=== PATIENT | female | born 1965 | race Caucasian/White ===

== ENCOUNTER 2018-04-17 00:03 | Emergency (ER) | payer MEDICARE, MEDICAID ==
[~2018-04-17] VITALS: Ht 154.9 cm; Wt 72.7 kg
[~2018-04-17 00:03] MED LIST: ALBU8.5H4 IH; CLON-528 PO; DOCU-28 PO; DULO-31 PO; LEVO75TA7 PO; NICO-687 TD; TRAZ-218 PO
[2018-04-17 00:16] VITALS: BP 129/82
[2018-04-17] MEDS ORDERED: ibuprofen 200mg tablet PO ONE (01:25)
== END 2018-04-17 02:00 | disposition home or self-care (01) ==
LOC: ER 00:03
DX: M25.531 Pain in right wrist (principal); M25.511 Pain in right shoulder; J44.9 Chronic obstructive pulmonary disease, unspecified; E03.9 Hypothyroidism, unspecified; Z98.51 Tubal ligation status; Z98.890 Other specified postprocedural states; Z79.899 Other long term (current) drug therapy
CPT/HCPCS: 29125; 73030; 73080; 73110; 99284; A4565; A6449

== ENCOUNTER 2019-03-31 01:21 | Emergency (ER) | payer MEDICARE, MEDICAID ==
[~2019-03-31] VITALS: Ht 154.9 cm; Wt 69.2 kg
[~2019-03-31 01:21] MED LIST changes: -TRAZ-218 PO; +TRAZ-251 PO
[2019-03-31 01:26] VITALS: BP 176/70
[2019-03-31] MEDS ORDERED: HYDROcodone/acetaminophen 10/325mg tab PO STA (01:33)
[2019-03-31] MEDS ORDERED: ONDA4TAB6 PO (02:53)
[2019-03-31] MEDS ORDERED: HYDR-4353 PO (02:53)
== END 2019-03-31 03:24 | disposition home or self-care (01) ==
LOC: ER 01:21
DX: S92.511A Displaced fracture of proximal phalanx of right lesser toe(s), initial encounter for closed fracture (principal); R11.0 Nausea; J44.9 Chronic obstructive pulmonary disease, unspecified; E03.9 Hypothyroidism, unspecified; F31.9 Bipolar disorder, unspecified; F41.9 Anxiety disorder, unspecified; F20.9 Schizophrenia, unspecified; Z79.899 Other long term (current) drug therapy; Z98.51 Tubal ligation status; Z98.890 Other specified postprocedural states; W22.8XXA Striking against or struck by other objects, initial encounter; Y93.01 Activity, walking, marching and hiking; Y92.89 Other specified places as the place of occurrence of the external cause; Y99.8 Other external cause status
CPT/HCPCS: 73630; 99283

== ENCOUNTER → 2021-02-05 | Emergency (ER) | payer MEDICARE, MEDICAID ==
[~2021-02-05] VITALS: Ht 154.9 cm; Wt 75.0 kg
[~2021-02-05] MED LIST changes: +HYDR-3972 PO; +HYDROcodone/acetaminophen 10/325mg tab PO ONE; +ONDA4TAB6 PO; +ORPH100T2 PO; +orphenadrine citrate 60mg/2ml inj. IM ONE
[2021-02-05 14:53] VITALS: BP 144/106
== END | disposition home or self-care (01) ==
LOC: ER 14:29
DX: S16.1XXA Strain of muscle, fascia and tendon at neck level, initial encounter (principal); I10 Essential (primary) hypertension; J44.9 Chronic obstructive pulmonary disease, unspecified; E03.9 Hypothyroidism, unspecified; Z98.890 Other specified postprocedural states; Z98.51 Tubal ligation status; Z79.899 Other long term (current) drug therapy; V99.XXXA Unspecified transport accident, initial encounter; Y93.89 Activity, other specified; Y92.89 Other specified places as the place of occurrence of the external cause; Y99.8 Other external cause status
CPT/HCPCS: 72040; 96372; 99283; J2360

== ENCOUNTER 2021-04-22 18:12 | Emergency (ER) | payer MEDICARE, MEDICAID ==
[~2021-04-22] VITALS: Ht 154.9 cm; Wt 70.5 kg
[~2021-04-22 18:12] MED LIST changes: -HYDR-3972 PO; -HYDROcodone/acetaminophen 10/325mg tab PO ONE; -orphenadrine citrate 60mg/2ml inj. IM ONE
[2021-04-22] MEDS ORDERED: HYDROcodone/acetaminophen 5mg/325mg tablet PO ONE (20:40)
[2021-04-22] MEDS ORDERED: HYDR-3965 PO (22:22)
--- NOTE | 2021-04-22 22:25 | NUR ---
Patient ambulatory to and from bathroom with steady gait. saltine crackers provided as patient states she became a bit nauseous after pain medicine.
[2021-04-22 22:38] VITALS: BP 137/88
== END 2021-04-22 22:39 | disposition home or self-care (01) ==
LOC: ER 18:13
DX: M54.6 Pain in thoracic spine (principal); M54.5 Low back pain; M25.511 Pain in right shoulder; M25.551 Pain in right hip; J44.9 Chronic obstructive pulmonary disease, unspecified; E03.9 Hypothyroidism, unspecified; F41.9 Anxiety disorder, unspecified; F31.9 Bipolar disorder, unspecified; F20.9 Schizophrenia, unspecified; F17.200 Nicotine dependence, unspecified, uncomplicated; Z98.51 Tubal ligation status; Z98.890 Other specified postprocedural states; Z79.899 Other long term (current) drug therapy
CPT/HCPCS: 72128; 72131; 73522; 99284; 99285

== ENCOUNTER 2021-12-30 20:39 | Emergency (ER) | payer MEDICARE, MEDICAID ==
[~2021-12-30] VITALS: Ht 154.9 cm; Wt 72.2 kg
[~2021-12-30 20:39] MED LIST changes: -CLON-528 PO; -DOCU-28 PO; -DULO-31 PO; -LEVO75TA7 PO; -NICO-687 TD; -ONDA4TAB6 PO; -ORPH100T2 PO
[2021-12-30 21:17] LABS: BASOPHILS # (AUTO) 0.1 X10'3 (0-0.2); BASOPHILS % (AUTO) 1.1 % (0-1); EOSINOPHILS # (AUTO) 0.2 X10'3 (0-0.9); EOSINOPHILS % (AUTO) 1.5 % (0-6); HEMATOCRIT 41.2 % (35.0-45.0); LYMPHOCYTES # (AUTO) 3.3 X10'3 (1.1-4.8); LYMPHOCYTES % (AUTO) 30.7 % (21-51); MEAN CORPUSCULAR HEMOGLOBIN 29.1 PG (27.0-31.0); MEAN CORPUSCULAR VOLUME 85.6 FL (78-98); MEAN PLATELET VOLUME 8.7 FL (7.4-10.4); MONOCYTES # (AUTO) 0.7 X10'3 (0-0.9); MONOCYTES % (AUTO) 6.6 % (2-12); NEUTROPHILS # (AUTO) 6.4 X10'3 (1.8-7.7); NEUTROPHILS % (AUTO) 60.1 % (42-75); PLATELET COUNT 297 X10'3 (140-440); RED BLOOD COUNT 4.81 X10'6 (4.20-5.60); WHITE BLOOD COUNT 10.6 X10'3 (4.5-11.0)
[2021-12-30 21:21] LABS: ALANINE AMINOTRANSFERASE 17 U/L (12-78); ALBUMIN 3.9 G/DL (3.4-5.0); ALBUMIN/GLOBULIN RATIO 1.1 (1.1-1.5); ALKALINE PHOSPHATASE 88 IU/L (46-116); ANION GAP 13 (8-16); ASPARTATE AMINO TRANSFERASE 14 U/L (10-37); BILIRUBIN,TOTAL 0.2 MG/DL (0.1-1.0); BLOOD UREA NITROGEN 10 MG/DL (7-18); BUN/CREATININE RATIO 11.5 (6.6-38.0); CALCIUM 8.8 MG/DL (8.5-10.1); CHLORIDE 109 MMOL/L (99-107); CREATININE 0.87 MG/DL (0.40-0.90); GLUCOSE 109 MG/DL (70-104); POTASSIUM 3.6 MMOL/L (3.5-5.1); SODIUM 146 MMOL/L (135-145); TOTAL CARBON DIOXIDE 24.5 MMOL/L (24-32); TOTAL PROTEIN 7.5 G/DL (6.4-8.2); eGFR 68 ML/MIN
[2021-12-30] MEDS ORDERED: HYDROcodone/acetaminophen 5mg/325mg tablet PO ONE (22:30)
[2021-12-30] MEDS ORDERED: aspirin 81mg tab.chew PO ONE (22:30)
[2021-12-31] MEDS ORDERED: ketorolac trometh. 30mg/ml inj. IV ONE (00:25)
[2021-12-31 00:30] VITALS: BP 156/71
== END 2021-12-31 00:31 | disposition home or self-care (01) ==
LOC: ER 20:40
DX: R07.89 Other chest pain (principal); R94.31 Abnormal electrocardiogram [ECG] [EKG]; J44.9 Chronic obstructive pulmonary disease, unspecified; E06.9 Thyroiditis, unspecified; F31.9 Bipolar disorder, unspecified; F17.200 Nicotine dependence, unspecified, uncomplicated
CPT/HCPCS: 36415; 71045; 80053; 83880; 84484; 85025; 93005; 99285

== ENCOUNTER 2022-01-09 21:18 | Inpatient (IN) | payer MEDICARE, MEDICAID ==
[~2022-01-09] VITALS: Ht 152.4 cm; Wt 72.7 kg
[2022-01-09 22:06] LABS: BASOPHILS # (AUTO) 0.1 X10'3 (0-0.2); BASOPHILS % (AUTO) 0.7 % (0-1); EOSINOPHILS # (AUTO) 0.1 X10'3 (0-0.9); EOSINOPHILS % (AUTO) 1.7 % (0-6); HEMOGLOBIN 13.5 g/dl (12.0-16.0); LYMPHOCYTES # (AUTO) 3.1 X10'3 (1.1-4.8); MEAN CORPUSCULAR HEMOGLOBIN 28.3 PG (27.0-31.0); MEAN CORPUSCULAR HGB CONC 33.7 g/dL (33.0-36.5); MEAN CORPUSCULAR VOLUME 83.9 FL (78-98); MEAN PLATELET VOLUME 8.2 FL (7.4-10.4); MONOCYTES # (AUTO) 0.5 X10'3 (0-0.9); MONOCYTES % (AUTO) 6.6 % (2-12); NEUTROPHILS # (AUTO) 4.5 X10'3 (1.8-7.7); PLATELET COUNT 257 X10'3 (140-440); RED BLOOD COUNT 4.76 X10'6 (4.20-5.60); RED CELL DISTRIBUTION WIDTH 13.8 % (11.5-14.5); WHITE BLOOD COUNT 8.3 X10'3 (4.5-11.0)
[2022-01-09 22:22] LABS: CHLORIDE 108 MMOL/L (99-107); GLUCOSE 103 MG/DL (70-104); POTASSIUM 3.6 MMOL/L (3.5-5.1); SODIUM 141 MMOL/L (135-145); TOTAL CARBON DIOXIDE 25.7 MMOL/L (24-32)
[2022-01-09 22:23] LABS: ALANINE AMINOTRANSFERASE 9 U/L (12-78); ALBUMIN 3.7 G/DL (3.4-5.0); ALKALINE PHOSPHATASE 84 IU/L (46-116); ANION GAP 7 (8-16); ASPARTATE AMINO TRANSFERASE 9 U/L (10-37); BILIRUBIN,TOTAL 0.2 MG/DL (0.1-1.0); BLOOD UREA NITROGEN 13 MG/DL (7-18); BUN/CREATININE RATIO 15.7 (6.6-38.0); CALCIUM 8.4 MG/DL (8.5-10.1); CREATININE 0.83 MG/DL (0.40-0.90); TOTAL PROTEIN 7.3 G/DL (6.4-8.2); eGFR 71 ML/MIN
[2022-01-10] VITALS (15 sets, daily range): BP systolic 114–204; BP diastolic 67–133
[2022-01-10 01:25] LABS: D-DIMER < 0.19 MG/L FEU (0-0.50)
[2022-01-10] MEDS ORDERED: acetaminophen 325mg tablet PO PRN ×2 (01:45)
[2022-01-10] MEDS ORDERED: magnesium Cl slow-release 64mg tablet PO PRN (01:45)
[2022-01-10] MEDS ORDERED: potassium Cl 20 mEq SR tablet PO PRN ×2 (01:45)
[2022-01-10] MEDS ORDERED: morphine 2 MG/ML inj. syringe IV PRN ×2 (01:45)
[2022-01-10] MEDS ORDERED: potassium CL 10mEq/100ml bag 100 ML IV PRN (01:45)
[2022-01-10] MEDS ORDERED: mag hydrox/Alum hydrox/simeth 30ml oral suspension PO PRN (01:45)
[2022-01-10] MEDS ORDERED: ondansetron/PF 4mg/2ml inj IV PRN (01:45)
[2022-01-10] MEDS ORDERED: PERFLUTREN PROTEIN-A MICROSPHR (Optison) 0.22 MG/ML 3ML VIAL IV PRN (01:45)
[2022-01-10] MEDS ORDERED: magnesium 2GM in 50ml NS 50 ML IV PRN (01:45)
[2022-01-10] MEDS ORDERED: magnesium 4gm in 100ml NS 100 ML IV PRN (01:45)
[2022-01-10] MEDS ORDERED: magnesium hydroxide 30ml (MOM) UD suspension PO PRN (01:45)
[2022-01-10] MEDS ORDERED: HYDROcodone/acetaminophen 10/325mg tab PO PRN (01:45)
[2022-01-10] MEDS ORDERED: HYDROcodone/acetaminophen 5mg/325mg tablet PO PRN (01:45)
[2022-01-10] MEDS ORDERED: metoprolol tartrate 1mg/ml inj IV PRN (02:30)
[2022-01-10] MEDS ORDERED: regadenoson 0.4mg/5ml syringe IV PRN (02:30)
[2022-01-10] MEDS ORDERED: aminophylline 250mg/10ml inj. IV PRN (02:30)
[2022-01-10] MEDS ORDERED: nitroGLYCERIN 0.4mg SUBLingual tab SL PRN (02:30)
[2022-01-10] MEDS: normal saline 1000ml 1,000 ML IV SCH ×3 (02:48→21:45)
--- NOTE | 2022-01-10 05:53 | NUR ---
BP has high BP 180/80. Marce CROWDER paged. No BP medications on NOV. Marce provided verbal order of Lisinopril 10mg PO 1 dose STAT.
[2022-01-10] MEDS ORDERED: lisinopril 10 MG tablet PO SCH (05:55)
[2022-01-10] MEDS ORDERED: lisinopril 10 MG tablet PO ONE (05:55)
[2022-01-10] MEDS: K and/or MAG REPLACEMENT MC SCH ×2 (08:00→20:00)
--- NOTE | 2022-01-10 08:00 | NUR ---
pt to cameron with staff
[2022-01-10] MEDS ORDERED: METO-384 PO (08:08)
[2022-01-10] MEDS ORDERED: ESCI5TAB17 PO (08:08)
[2022-01-10] MEDS ORDERED: TRAZ-251 PO (08:08)
[2022-01-10] MEDS ORDERED: ASPI81TA52 PO (08:09)
--- NOTE | 2022-01-10 08:59 | NUR ---
report called to ander ASTORGA coming up from [facility]
[2022-01-10] MEDS ORDERED: aminophylline 500mg/20ml vial ONE (09:59)
[2022-01-10] MEDS ORDERED: aminophylline 500mg/20ml vial IV PRN (10:04)
[2022-01-10] MEDS: docusate sod 100mg capsule PO SCH ×2 (12:12→20:00)
[2022-01-10] MEDS: heparin, porcine 5000 units/ml vial SQ SCH ×2 (12:12→20:00)
[2022-01-10] MEDS ORDERED: amLODIPine 5mg tablet PO ONE (12:45)
[2022-01-10] MEDS ORDERED: traZODone 50mg tablet PO PRN (13:10)
[2022-01-10] MEDS: nicotine 21mg patch - 24 hr TD SCH (17:04)
--- NOTE | 2022-01-10 18:47 | NUR ---
Patient in room PCU 3017. I have received report from betzaida and had the opportunity to ask questions and assume patient care.
[2022-01-10] MEDS ORDERED: temazepam 15mg capsule PO PRN (21:00)
[2022-01-10] MEDS: LORazepam 2 mg/ml vial IV PRN (21:06)
[2022-01-11 02:00] VITALS: BP 147/68
--- NOTE | 2022-01-11 02:17 | NUR ---
Patient was wanting to leave AMA because she wanted to smoke and anxiety. Patient has a nicotine patch on. I called Dr. Zheng to notify and she gave an order for Ativan. I was able to give the patient Ativan but patient refused other medications at this time. Patient is now resting comfortably.
[2022-01-11] MEDS: LORazepam 2 mg/ml vial IV PRN (05:31)
[2022-01-11] MEDS: normal saline 1000ml 1,000 ML IV SCH (05:40)
[2022-01-11 06:00] VITALS: BP 181/94
--- NOTE | 2022-01-11 06:37 | NUR ---
Problems reprioritized. Patient report given, questions answered & plan of care reviewed with holly.
[2022-01-11] MEDS: docusate sod 100mg capsule PO SCH (07:58)
[2022-01-11] MEDS: nicotine 21mg patch - 24 hr TD SCH (07:59)
[2022-01-11] MEDS ORDERED: amLODIPine 5mg tablet PO SCH (08:00)
[2022-01-11] MEDS: K and/or MAG REPLACEMENT MC SCH (08:00)
[2022-01-11] MEDS ORDERED: ESCITALOPRAM OXALATE 5 MG TABLET PO SCH (08:00)
[2022-01-11] MEDS: heparin, porcine 5000 units/ml vial SQ SCH (08:00)
[2022-01-11] MEDS ORDERED: metoprolol succinate 25mg (24-HOUR) SR. Tablet PO SCH (08:00)
[2022-01-11] MEDS ORDERED: aspirin 81mg, enteric-coated 1 TAB TABLET.DR PO SCH (08:00)
[2022-01-11 08:27] LABS: BASOPHILS % (AUTO) 0.7 % (0-1); EOSINOPHILS # (AUTO) 0.1 X10'3 (0-0.9); EOSINOPHILS % (AUTO) 1.6 % (0-6); HEMATOCRIT 39.7 % (35.0-45.0); HEMOGLOBIN 13.6 g/dl (12.0-16.0); LYMPHOCYTES % (AUTO) 35.7 % (21-51); MEAN CORPUSCULAR HEMOGLOBIN 28.8 PG (27.0-31.0); MEAN CORPUSCULAR HGB CONC 34.2 g/dL (33.0-36.5); MEAN CORPUSCULAR VOLUME 84.3 FL (78-98); MEAN PLATELET VOLUME 8.8 FL (7.4-10.4); MONOCYTES # (AUTO) 0.3 X10'3 (0-0.9); MONOCYTES % (AUTO) 5.4 % (2-12); NEUTROPHILS # (AUTO) 3.1 X10'3 (1.8-7.7); NEUTROPHILS % (AUTO) 56.6 % (42-75); PLATELET COUNT 251 X10'3 (140-440); RED BLOOD COUNT 4.71 X10'6 (4.20-5.60); RED CELL DISTRIBUTION WIDTH 13.3 % (11.5-14.5); WHITE BLOOD COUNT 5.5 X10'3 (4.5-11.0)
[2022-01-11 08:39] LABS: ALANINE AMINOTRANSFERASE 11 U/L (12-78); ALBUMIN 3.6 G/DL (3.4-5.0); ALKALINE PHOSPHATASE 80 IU/L (46-116); ANION GAP 11 (8-16); ASPARTATE AMINO TRANSFERASE 9 U/L (10-37); BILIRUBIN,TOTAL 0.4 MG/DL (0.1-1.0); BLOOD UREA NITROGEN 11 MG/DL (7-18); BUN/CREATININE RATIO 14.1 (6.6-38.0); CHLORIDE 108 MMOL/L (99-107); CREATININE 0.78 MG/DL (0.40-0.90); GLUCOSE 101 MG/DL (70-104); POTASSIUM 3.7 MMOL/L (3.5-5.1); SODIUM 143 MMOL/L (135-145); TOTAL CARBON DIOXIDE 24.4 MMOL/L (24-32); TOTAL PROTEIN 7.2 G/DL (6.4-8.2); eGFR 77 ML/MIN
[2022-01-11 11:00] VITALS: BP 175/81
[2022-01-11] MEDS ORDERED: LISI5TAB22 PO (13:53)
[2022-01-11] MEDS ORDERED: NICO-687 TD (13:53)
[2022-01-11] MEDS ORDERED: NOR5T PO (13:53)
--- NOTE | 2022-01-11 14:15 | NUR ---
discharge instructions discussed with patients. All questions answered. Pt states she understands all instructions. Removed PIV and walked pt to elevator. sister is picking pt up.
== END 2022-01-11 15:15 | disposition home or self-care (01) | DRG 305 ==
LOC: ER 21:19 → ED HOLD 01-10 01:48 → PCU 3S 01-10 11:19
PROVIDERS: ADMIT Internal Medicine; ATTEND Family Medicine
PROC: 4A02XM4 Measurement of Cardiac Total Activity, External Approach (ICD-10-PCS; principal; 2022-01-10)
PROC: 3E033HZ Introduction of Radioactive Substance into Peripheral Vein, Percutaneous Approach (ICD-10-PCS; 2022-01-10)
DX: I16.0 Hypertensive urgency (principal); E03.9 Hypothyroidism, unspecified; F17.210 Nicotine dependence, cigarettes, uncomplicated; I10 Essential (primary) hypertension; F20.9 Schizophrenia, unspecified; F31.9 Bipolar disorder, unspecified; F41.9 Anxiety disorder, unspecified; J44.9 Chronic obstructive pulmonary disease, unspecified; Z88.8 Allergy status to other drugs, medicaments and biological substances; Z98.51 Tubal ligation status; Z71.6 Tobacco abuse counseling
CPT/HCPCS: 36415; 71045; 78452; 80053; 83605; 83880; 84484; 85025; 85379; 87040; 87077; 87081; 93005; 93017; 93306; 97116; 97161; 99285; A9500; G0378; J0280; J1644; J2060; J2785; J7030

== ENCOUNTER 2022-02-06 13:54 | Emergency (ER) | payer MEDICARE, MEDICAID ==
[~2022-02-06] VITALS: Ht 152.4 cm; Wt 68.2 kg
[~2022-02-06 13:54] MED LIST changes: -ALBU8.5H4 IH; +ASPI81TA52 PO; +ESCI5TAB17 PO; +LISI5TAB22 PO; +METO-384 PO; +NICO-687 TD; +NOR5T PO
[2022-02-06 15:07] LABS: BASOPHILS # (AUTO) 0.1 X10'3 (0-0.2); BASOPHILS % (AUTO) 0.9 % (0-1); EOSINOPHILS # (AUTO) 0.2 X10'3 (0-0.9); EOSINOPHILS % (AUTO) 1.9 % (0-6); HEMATOCRIT 40.7 % (35.0-45.0); HEMOGLOBIN 13.7 g/dl (12.0-16.0); LYMPHOCYTES # (AUTO) 2.3 X10'3 (1.1-4.8); LYMPHOCYTES % (AUTO) 23.5 % (21-51); MEAN CORPUSCULAR HEMOGLOBIN 28.4 PG (27.0-31.0); MEAN CORPUSCULAR HGB CONC 33.6 g/dL (33.0-36.5); MEAN CORPUSCULAR VOLUME 84.4 FL (78-98); MEAN PLATELET VOLUME 8.7 FL (7.4-10.4); MONOCYTES # (AUTO) 0.6 X10'3 (0-0.9); MONOCYTES % (AUTO) 5.9 % (2-12); NEUTROPHILS # (AUTO) 6.7 X10'3 (1.8-7.7); NEUTROPHILS % (AUTO) 67.8 % (42-75); PLATELET COUNT 260 X10'3 (140-440); RED BLOOD COUNT 4.82 X10'6 (4.20-5.60); WHITE BLOOD COUNT 9.9 X10'3 (4.5-11.0)
[2022-02-06 15:24] LABS: ALANINE AMINOTRANSFERASE 9 U/L (12-78); ALBUMIN 3.9 G/DL (3.4-5.0); ALBUMIN/GLOBULIN RATIO 1.1 (1.1-1.5); ALKALINE PHOSPHATASE 92 IU/L (46-116); ANION GAP 7 (8-16); ASPARTATE AMINO TRANSFERASE 10 U/L (10-37); BILIRUBIN,TOTAL 0.3 MG/DL (0.1-1.0); BLOOD UREA NITROGEN 11 MG/DL (7-18); BUN/CREATININE RATIO 12.5 (6.6-38.0); CHLORIDE 108 MMOL/L (99-107); CREATININE 0.88 MG/DL (0.40-0.90); GLUCOSE 98 MG/DL (70-104); POTASSIUM 3.8 MMOL/L (3.5-5.1); SODIUM 141 MMOL/L (135-145); TOTAL PROTEIN 7.6 G/DL (6.4-8.2); eGFR 67 ML/MIN
[2022-02-06] MEDS ORDERED: aspirin 81mg tab.chew PO ONE (17:10)
[2022-02-06] MEDS ORDERED: enoxaparin 100mg/ml syringe SUBCUT ONE (17:50)
[2022-02-06 18:26] VITALS: BP 124/79
== END 2022-02-06 18:28 | disposition home or self-care (01) ==
LOC: ER 13:54
DX: R07.89 Other chest pain (principal); I10 Essential (primary) hypertension; J44.9 Chronic obstructive pulmonary disease, unspecified; E03.9 Hypothyroidism, unspecified; F41.9 Anxiety disorder, unspecified; F31.9 Bipolar disorder, unspecified; F20.9 Schizophrenia, unspecified; F17.200 Nicotine dependence, unspecified, uncomplicated; Z98.51 Tubal ligation status; Z88.8 Allergy status to other drugs, medicaments and biological substances; Z79.899 Other long term (current) drug therapy
CPT/HCPCS: 36415; 71045; 80053; 83880; 84484; 85025; 93005; 99285

== ENCOUNTER 2022-05-07 11:01 | Emergency (ER) | payer MEDICARE, MEDICAID ==
[~2022-05-07] VITALS: Ht 154.9 cm; Wt 70.5 kg
--- NOTE | 2022-05-07 12:10 | NUR ---
Pt is very hard of hearing. C/O Lower back pain with incont. of both urine and stool.
--- NOTE | 2022-05-07 12:35 | NUR ---
MRI questionare completed and faxed.
--- NOTE | 2022-05-07 14:08 | NUR ---
Pt is in MRI.
[2022-05-07 15:04] VITALS: BP 129/49
[2022-05-07] MEDS ORDERED: IBUP-1986 PO (17:48)
[2022-05-07] MEDS ORDERED: ORPH100T2 PO (17:48)
[2022-05-07] MEDS ORDERED: HYDR-3972 PO (17:48)
[2022-05-07] MEDS ORDERED: HYDROcodone/acetaminophen 10/325mg tab PO ONE (17:50)
[2022-05-07] MEDS ORDERED: orphenadrine citrate 60mg/2ml inj. IM ONE (17:50)
--- NOTE | 2022-05-07 18:09 | NUR ---
Pt given and understands d/c instructions. Ambulatory with a slow steady gait.
== END 2022-05-07 18:10 | disposition home or self-care (01) ==
LOC: ER 11:02
DX: M54.50 Low back pain, unspecified (principal); I10 Essential (primary) hypertension; J44.9 Chronic obstructive pulmonary disease, unspecified; E03.9 Hypothyroidism, unspecified; F31.9 Bipolar disorder, unspecified; Z88.8 Allergy status to other drugs, medicaments and biological substances; Z98.51 Tubal ligation status
CPT/HCPCS: 72148; 96372; 99284; J2360

== ENCOUNTER 2023-10-29 21:11 | Emergency (ER) | payer MEDICARE, MEDICAID ==
[~2023-10-29] VITALS: Ht 154.9 cm; Wt 70.1 kg
[~2023-10-29 21:11] MED LIST changes: +IBUP-1986 PO; +ORPH100T4 PO
[2023-10-29 21:28] VITALS: BP 212/80; PULSE 87; RESP 18; TEMP 98.2; O2SAT 100
[2023-10-29] MEDS ORDERED: HYDR-3965 PO (22:30)
== END 2023-10-29 22:50 | disposition home or self-care (01) ==
LOC: ER 21:12
DX: S80.02XA Contusion of left knee, initial encounter (principal); S70.02XA Contusion of left hip, initial encounter; I10 Essential (primary) hypertension; E03.9 Hypothyroidism, unspecified; F41.9 Anxiety disorder, unspecified; F20.9 Schizophrenia, unspecified; Z98.890 Other specified postprocedural states; V29.888A Rider (driver) (passenger) of other motorcycle injured in other specified transport accidents, initial encounter; Y93.89 Activity, other specified; Y92.89 Other specified places as the place of occurrence of the external cause; Y99.8 Other external cause status
CPT/HCPCS: 73502; 73564; 99284

== ENCOUNTER 2025-03-06 04:24 | Emergency (ER) | payer MEDICAID, MEDICARE, OTHER ==
[~2025-03-06] VITALS: Ht 152.4 cm; Wt 71.2 kg
[2025-03-06 04:27] VITALS: TEMP 98
[2025-03-06 05:10] LABS: BASOPHILS # (AUTO) 0.1 X10'3 (0-0.2); BASOPHILS % (AUTO) 1.1 % (0-1); EOSINOPHILS # (AUTO) 0.2 X10'3 (0-0.9); EOSINOPHILS % (AUTO) 1.7 % (0-6); HEMOGLOBIN 13.6 g/dl (12.0-16.0); LYMPHOCYTES # (AUTO) 3.2 X10'3 (1.1-4.8); MEAN CORPUSCULAR HEMOGLOBIN 28.8 PG (27.0-31.0); MEAN CORPUSCULAR HGB CONC 34.9 g/dL (33.0-36.5); MEAN CORPUSCULAR VOLUME 82.6 FL (78-98); MEAN PLATELET VOLUME 8.4 FL (7.4-10.4); MONOCYTES # (AUTO) 0.7 X10'3 (0-0.9); MONOCYTES % (AUTO) 7.1 % (2-12); NEUTROPHILS # (AUTO) 5.3 X10'3 (1.8-7.7); NEUTROPHILS % (AUTO) 56.1 % (42-75); PLATELET COUNT 280 X10'3 (140-440); RED BLOOD COUNT 4.73 X10'6 (4.20-5.60); RED CELL DISTRIBUTION WIDTH 14.2 % (11.5-14.5); WHITE BLOOD COUNT 9.5 X10'3 (4.5-11.0)
--- NOTE | 2025-03-06 05:21 | RADIOLOGY REPORT ---
EXAM: XR Chest, 1 View CLINICAL INDICATION: Pain TECHNIQUE: Frontal view of the chest. COMPARISON: No relevant prior studies available. FINDINGS: LUNGS AND PLEURAL SPACES: Unremarkable. No consolidation. No pneumothorax. HEART: Unremarkable. No cardiomegaly. MEDIASTINUM: Unremarkable. Normal mediastinal contour. BONES/JOINTS: Unremarkable. No acute fracture. IMPRESSION: No acute cardiopulmonary process.
--- NOTE | 2025-03-06 05:24 | ELECTROCARDIOGRAPH REPORT ---
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
[2025-03-06 05:28] LABS: ALBUMIN 3.6 G/DL (3.4-5.0); ANION GAP 6 (8-16); BLOOD UREA NITROGEN 10 MG/DL (7-18); BUN/CREATININE RATIO 11.8 (10.0-20.0); CALCIUM 8.9 MG/DL (8.5-10.1); CHLORIDE 108 MMOL/L (99-107); CREATININE 0.85 MG/DL (0.40-0.90); GLUCOSE 91 MG/DL (70-104); POTASSIUM 3.5 MMOL/L (3.5-5.1); SODIUM 141 MMOL/L (135-145); TOTAL CARBON DIOXIDE 27.1 MMOL/L (24-32); eCRCL 52 ML/MIN; eGFR 69 ML/MIN
[2025-03-06] MEDS: nicotine 21mg patch - 24 hr TD ONE (06:41)
--- NOTE | 2025-03-06 07:41 | Physician Documentation ---
History of Present Illness ~ Chief Complaint: Chest Pain Stated Complaint: CHEST PAIN Time Seen by MD: 06:14 Primary Medical Doctor: NONE Mode of Arrival: EMS HPI 59-year-old female presenting with acute onset chest pain that started last night about midnight to 1:00 a.m.. Patient states that she was trying to sleep when she has had sudden substernal chest pain. Pain was about 8/10 and did not radiate. She also became nauseous and slightly short of breath. Patient states that her chest pain is now completely gone. She is asymptomatic currently and no longer has any other symptoms. Patient does smoke but is otherwise healthy. She has a high blood pressure which he is not on medication for. Denies any other medical issues. Denies any history of heart problems. States that she has been undergoing a lot of stress recently due to various family and other social issues. Medication Reconciliation Allergies: Coded Allergies: pramipexole (Verified Adverse Reaction, Intermediate, GAVE TERRIBLE DREAMS, 05/07/22) Scheduled Amlodipine Besylate (Amlodipine Besylate), 5 MG PO DAILY Aspirin (Aspirin EC), 1 TAB PO DAILY, (Reported) Escitalopram Oxalate (Escitalopram Oxalate), 1 TAB PO DAILY, (Reported) Ibuprofen (Ibuprofen), 1 TAB PO Q8H Lisinopril (Lisinopril), 1 TAB PO DAILY Metoprolol Succinate (Metoprolol Succinate), 1 TAB PO DAILY, (Reported) Nicotine 21 MG Patch* (Habitrol 21 MG Patch*), 1 PATCH TD DAILY Orphenadrine Citrate (Norflex), 1 TAB PO Q12H PRN Scheduled PRN Trazodone HCl (Trazodone HCl), 1 TAB PO HSMR1 PRN for sleep, (Reported) Past Medical History Past Medical History: Hypertension, COPD, Hypothyroidism, Anxiety, Bipolar, Schizophrenia Past Surgical History: orthopedic surgeries, tubal ligation Smoking Status: Current every day smoker Alcohol Use: None Drug Use: none Lives with: Spouse Lives In: Home Review of Systems All Other Systems at this time: Reviewed and Negative Physical Exam Vital Signs: Temperature: 98.0, Source: Oral, Heart Rate: 57, Respiratory Rate: 18, BP: 111/92, Pulse Oximetry: 98, Weight: 71.200 Oxygen Flow Rate: 0 Physical Exam I have reviewed the triage vitals. CONST: Well developed and well nourished. In no acute distress HENT: Head Atraumatic EYES: Pupils are equal, round and reactive to light. Normal conjunctiva NECK: Normal range of motion. Supple. CARDIO: Normal rate and regular rhythm. No murmurs, rubs, or gallops. S1, S2. PULM/CHEST: No respiratory distress. Lungs clear to auscultation. No wheeze ABD: Soft and nontender. Nondistended. Bowel sounds normal. No guarding. : Exam deferred MSK: No edema. No deformity. NEURO: Alert and oriented to person, place and time. Moving all extremities SKIN: Warm and dry. PSYCH: Normal mood and affect. Good eye contact. Progress Results/Orders Results/Orders Completed Orders - ELSA GILES MD Nicotine 21mg Patch -24hr (Habitrol Patc (03/06/25 06:15) Electrocardiogram (03/06/25 ) Medications Received in ER Medications (Trade) Dose Ordered Sig/Jodi Route PRN Reason Start Time Stop Time Status Last Admin Dose Admin (Habitrol patch) 1 patch ONCE ONCE TD 03/06/25 06:15 03/06/25 06:16 DC 03/06/25 06:41 1 PATCH Vital Signs 03/06/25 03/06/25 03/06/25 03/06/25 04:27 04:31 05:40 06:10 Temp 98.0 Pulse 64 58 59 Resp 16 16 16 B/P (MAP) 181/81 161/68 (99) 181/157 (165) Pulse Ox 99 97 96 O2 Flow Rate 0 0 0 03/06/25 03/06/25 06:42 08:20 Pulse 57 59 Resp 18 18 B/P (MAP) 111/92 (98) 179/97 (124) Pulse Ox 98 100 O2 Flow Rate 0 Laboratory Tests Test 03/06/25 04:35 03/06/25 07:33 White Blood Count 9.5 Red Blood Count 4.73 Hemoglobin 13.6 Hematocrit 39.0 Mean Corpuscular Volume 82.6 Mean Corpuscular Hemoglobin 28.8 Mean Corpuscular Hemoglobin Concent 34.9 Red Cell Distribution Width 14.2 Platelet Count 280 Mean Platelet Volume 8.4 Neutrophils (%) (Auto) 56.1 Lymphocytes (%) (Auto) 34.0 Monocytes (%) (Auto) 7.1 Eosinophils (%) (Auto) 1.7 Basophils (%) (Auto) 1.1 H Neutrophils # (Auto) 5.3 Lymphocytes # (Auto) 3.2 Monocytes # (Auto) 0.7 Eosinophils # (Auto) 0.2 Basophils # (Auto) 0.1 CBC Comment Sodium Level 141 Potassium Level 3.5 Chloride Level 108 H Carbon Dioxide Level 27.1 Anion Gap 6 L Blood Urea Nitrogen 10 Creatinine 0.85 Estimated GFR/1.73 m2 69 BUN/Creatinine Ratio 11.8 Glucose Level 91 Calcium Level 8.9 Troponin I High Sensitivity 12 14 Albumin 3.6 Chemistry Comments Troponin I High Sens Percent Delta 16 Troponin I Hi Sens Absolute Change 2 EKG/XRAY/CT/US/VASC/MRI EKG : Additional Comment EKG as interpreted by myself indicates normal sinus rhythm with a rate of 62 beats per minute, no ischemia, normal axis Chest X-Ray : Additional Comments EXAM: XR Chest, 1 View CLINICAL INDICATION: Pain TECHNIQUE: Frontal view of the chest. COMPARISON: No relevant prior studies available. FINDINGS: LUNGS AND PLEURAL SPACES: Unremarkable. No consolidation. No pneumothorax. HEART: Unremarkable. No cardiomegaly. MEDIASTINUM: Unremarkable. Normal mediastinal contour. BONES/JOINTS: Unremarkable. No acute fracture. IMPRESSION: No acute cardiopulmonary process. Heart Score: Heart Score Response (Comments) Value History Moderate Suspicious 1 EKG Normal 0 Age 45-64 1 Risk Factors 1 or 2 risk factors 1 Troponin Normal limit 0 Total 3 Medical Decision Making Additional Information 59-year-old female presenting with acute onset chest pain that has now resolved. Her cardiac workup is negative with 2- troponins. EKG x2 is also unremarkable with no signs of any ischemia. Patient's chest pain resolved spontaneously and she has remained chest pain-free here in the ED. Her vitals are within normal limits and the patient looks clinically well. I did offer admission to the patient for further cardiac workup and risk stratification however the patient declined. At this point in time given that she is asymptomatic and all vitals are normal and she looks clinically well I believe she can be discharged home. However I did stress the importance that she follow up very closely with her primary care physician as well as with Cardiology for outpatient cardiac evaluation and risk stratification. I advised the patient to return immediately to the emergency department should her symptoms return. Departure Disposition: HOME / SELF CARE / HOMELESS Impression: Primary Impression: Chest pain Condition: Stable Discharge Instructions: Nonspecific Chest Pain, Adult Additional Instructions: Your cardiac workup is negative here in the ER today. However we can not fully rule out an underlying heart problem and I strongly recommend that you follow up closely with her primary care physician and a coal digger for further cardiac evaluation. Please return promptly to the emergency department should her symptoms return. Referrals: NO PRIMARY CARE PROVIDER (PCP) Signature Scribe Signature: 1 Attestation: 1 ELSA GILES MD Mar 06, 2025 07:41
--- NOTE | 2025-03-06 08:39 | ELECTROCARDIOGRAPH REPORT ---
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
[2025-03-06 09:52] VITALS: BP 163/84; PULSE 61; RESP 17; O2SAT 96
== END 2025-03-06 09:55 | disposition home or self-care (01) ==
LOC: ER 04:24
DX: R07.89 Other chest pain (principal); I10 Essential (primary) hypertension; F31.9 Bipolar disorder, unspecified; E03.9 Hypothyroidism, unspecified; F41.9 Anxiety disorder, unspecified; J44.9 Chronic obstructive pulmonary disease, unspecified; F17.200 Nicotine dependence, unspecified, uncomplicated; F20.9 Schizophrenia, unspecified; Z98.51 Tubal ligation status; Z88.8 Allergy status to other drugs, medicaments and biological substances; Z79.899 Other long term (current) drug therapy
CPT/HCPCS: 36415; 71045; 80048; 84484; 85025; 93005; 99285